=== PATIENT | male | born 1945 | race Caucasian/White ===

== ENCOUNTER → 2016-08-12 | Outpatient (CLI) | payer MEDICARE, OTHER | END | disposition home or self-care (01) | LOC: CFH 14:47 | PROVIDERS: ATTEND Physician Assistant | DX: I51.7 Cardiomegaly (principal); E78.1 Pure hyperglyceridemia; J45.909 Unspecified asthma, uncomplicated; J45.991 Cough variant asthma; M19.071 Primary osteoarthritis, right ankle and foot | CPT/HCPCS: 93306 ==